=== PATIENT | female | born 1995 | race Caucasian/White ===

== ENCOUNTER 2022-03-16 16:57 | Emergency (ER) | payer OTHER ==
[~2022-03-16] VITALS: Ht 170.2 cm; Wt 54.9 kg
[2022-03-16 17:20] VITALS: BP 116/65
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
[2022-03-16] MEDS ORDERED: IBUP-2213 PO (18:25)
[2022-03-16] MEDS ORDERED: IBUPROFEN 600 MG TAB ONE (19:09)
[2022-03-16] MEDS: IBUPROFEN 600 MG TAB PO ONE (19:11)
[2022-03-16 19:16] VITALS: BP 112/71
--- NOTE | 2022-03-16 19:16 | NUR ---
Patient discharged with v/s stable. Written and verbal after care instructions FOR WRIST SPRAIN AND CONTUSION given and explained. Patient alert, oriented and verbalized understanding of instructions. Ambulatory with steady gait. All questions addressed prior to discharge. ID band removed. Patient advised to follow up with PMD. Rx of IBUPROFEN given. Opportunity to ask questions provided and answered.
== END 2022-03-16 19:16 | disposition home or self-care (01) ==
LOC: MED 16:57
DX: S63.501A Unspecified sprain of right wrist, initial encounter (principal); Z79.899 Other long term (current) drug therapy; Y04.0XXA Assault by unarmed brawl or fight, initial encounter; Y93.89 Activity, other specified; Y92.89 Other specified places as the place of occurrence of the external cause; Y99.8 Other external cause status
CPT/HCPCS: 73110; 73130; 99284